=== PATIENT | female | born 1995 | race Two or more races ===

== ENCOUNTER 2019-06-03 03:03 | Inpatient (IN) | payer MEDICAID, OTHER ==
[2019-06-03] VITALS (7 sets, daily range): BP systolic 94–115; BP diastolic 49–77
[~2019-06-03] VITALS: Ht 157.5 cm; Wt 83.0 kg
[2019-06-03] MEDS ORDERED: ONDANSETRON PF 4 MG/2 ML VIAL. IV PRN (03:30)
[2019-06-03] MEDS ORDERED: OXYTOCIN 30 UNIT/500 ML PREMIX 500 ML IV PRN ×3 (03:30→09:15)
[2019-06-03] MEDS ORDERED: MAG HYDROX/ALUMINUM HYD/SIMETH 30 ML ORAL.SUSP PO PRN ×2 (03:30→09:15)
[2019-06-03] MEDS ORDERED: LIDOCAINE 1% PF 30 ML VIAL. INJ PRN (03:30)
[2019-06-03] MEDS ORDERED: 0.9 % SODIUM CHLORIDE 10 ML DISP.SYRIN. IV PRN ×2 (03:30→09:15)
[2019-06-03] MEDS ORDERED: IBUPROFEN 400 MG TABLET. PO PRN (03:30)
[2019-06-03] MEDS ORDERED: fentaNYL PF VIAL 100 MCG/2 ML VIAL IV PRN (03:30)
[2019-06-03] MEDS ORDERED: TERBUTALINE 1 MG/ML VIAL. SQ PRN (03:30)
[2019-06-03] MEDS ORDERED: BUTORPHANOL 2 MG/ML VIAL. IV PRN (03:30)
[2019-06-03] MEDS ORDERED: ACETAMINOPHEN 325 MG TABLET. PO PRN ×2 (03:30→09:15)
[2019-06-03] MEDS ORDERED: NALBUPHINE 10 MG/ML AMPUL. IV PRN (03:30)
[2019-06-03] MEDS ORDERED: PENICILLIN G K 5,000,000 UNIT in IV DEXTROSE 5% 100ML 100 ML IV ONE (04:00)
[2019-06-03] MEDS: IV RINGERS,LACTATED 1000ML 1,000 ML IV SCH ×2 (04:28→06:45)
[2019-06-03 05:10] LABS: BASO % 0 % (0-3); EOS # 0.1 x10^3/uL (0.0-0.7); EOS % 2 % (0-3); HEMATOCRIT 32.8 % (36.0-47.0); LYMPH # 1.4 x10^3/uL (1.0-4.8); LYMPH % 19 % (24-48); MEAN CORPUSCULAR HEMOGLOBIN 28 pg (25-35); MEAN CORPUSCULAR HGB CONC 34 g/dL (31-37); MEAN CORPUSCULAR VOLUME 84 fL (79-100); MONO # 0.4 x10^3/uL (0.0-1.1); MONO % 5 % (0-9); NEUT # 5.4 x10^3/uL (1.8-7.7); NEUT % 74 % (31-73); PLATELET COUNT 230 x10^3/uL (140-400); RED BLOOD COUNT 3.93 x10^6/uL (3.50-5.40); RED CELL DISTRIBUTION WIDTH 14.9 % (11.5-14.5); WHITE BLOOD COUNT 7.3 x10^3/uL (4.0-11.0)
[2019-06-03] MEDS ORDERED: IV RINGERS,LACTATED 1000ML 1,000 ML IV SCH (05:41)
[2019-06-03] MEDS ORDERED: ePHEDrine PF IN SALINE 50 MG/10 ML SYRINGE. IV PRN (05:45)
[2019-06-03] MEDS ORDERED: ROPIVacaine 0.2% IN 0.9%NACL PF 40 MG/20 ML DISP.SYRIN. EPID PRN (05:45)
[2019-06-03] MEDS ORDERED: NALOXONE 0.4 MG/ML VIAL. IV PRN (05:45)
[2019-06-03] MEDS ORDERED: L&D EPIDURAL SYRINGE 50 ML EPID PRN (05:45)
[2019-06-03] MEDS ORDERED: ROPIVacaine 0.2% PF 10 ML VIAL. ONE ×2 (05:52→06:00)
--- NOTE | 2019-06-03 06:39 | PDOC1 ---
OB - History Hx of Present Care: Good Care Ultrasounds: Normal mid trimester US Obstetrical Complications: None Medical Complications: None Past Family/Social History * Past Medical, Surgical, Family and Obstetric Histories reviewed from chart. Rubella: Immune RPR/VDRL: Negative GBS Status: Positive HBsAG: Negative OB - Chief Complaint & HPI Date of Admission: Date of Admission: Jun 03, 2019 at 03:03 Chief Complaint/History : 3 Para: 2 EGA: 40 Reason for admission: active labor Admission Nurse Assessment Rev: Yes OB - Admission Exam Physical Exam Vitals: VS - Last 72 Hours, by Label Date Time Temp Pulse Resp B/P (MAP) Pulse Ox O2 Delivery O2 Flow Rate FiO2 06/03/19 05:57 20 Room Air 06/03/19 05:16 20 Room Air 06/03/19 04:09 98.2 87 18 115/77 (90) Room Air 98.2 HEENT: Normal Heart: Regular Rate Lungs: Clear, Equal Abdomen: Gravid, Non tender, Soft Extremities: Edema Reflexes: Normal Cervical Dilatation: 5cm Effacement: 75% Station: -2 Membranes: Intact Heart Rate: Normal Accelerations: Accelerations Present Decelerations: No decelerations Excellence Leader Variability: Moderate Contractions on Admission: < 5 Minutes Apart Intensity: Moderate Text A: 40 wks IUP GBS positive Active labor P: Admit for labor management. Start Pen G prophylaxis for GBS status. JACQUELYN JACOBS Jr, MD Jun 03, 2019 06:39
[2019-06-03 07:31] LABS: BILIRUBIN,URINE NEGATIVE (NEG); CLARITY,URINE CLEAR; COLOR,URINE YELLOW; NITRITE,URINE NEGATIVE (NEG); PROTEIN,URINE NEGATIVE (NEG-TRACE)
[2019-06-03 07:43] LABS: BACTERIA,URINE MODERATE /HPF (0-FEW); RBC,URINE OCC /HPF (0-2); SQUAMOUS EPITHELIAL CELL,UR MOD /LPF
[2019-06-03] MEDS ORDERED: PENICILLIN G K 2,500,000 UNIT in IV DEXTROSE 5% 50 ML IV SCH (08:00)
--- NOTE | 2019-06-03 09:04 | PDOC ---
VAGINAL DELIVERY DATE DATE: 06/03/19 TIME: 09:03 : 3 Para: 3 EGA: 40 VAGINAL DELIVERY: VTX VACCUM ASSISTED: No PLACENTA: Spontaneous 8/9 SEX: Male WEIGHT Weight [ 2975 gm] Nuchal Cord: No Amniotic Fluid: Clear PAIN: Epidural EPISIOTOMY: No EXTENSION: No EBL 300 ml COMPLICATIONS none CONDITION pt. stable Signs of Intrauterine Infectio: None Shoulder Dystocia: No JACQUELYN JACOBS Jr, MD Jun 03, 2019 09:04
[2019-06-03] MEDS ORDERED: MAGNESIUM HYDROXIDE 2,400 MG/30 ML ORAL.SUSP. PO PRN (09:15)
[2019-06-03] MEDS ORDERED: SIMETHICONE 80 MG TAB.CHEW PO PRN (09:15)
[2019-06-03] MEDS ORDERED: BENZOCAINE 20% TOPICAL AEROSOL SPRAY 57GM CAN. TP PRN (09:15)
[2019-06-03] MEDS ORDERED: PHENYLEPH/MINERAL OIL/PETROLAT RECTAL OINTMENT TUBE. RC PRN (09:15)
[2019-06-03] MEDS ORDERED: oxyCODONE/APAP 5/325 1 TAB TABLET PO PRN (09:15)
[2019-06-03] MEDS ORDERED: HYDROCORTISONE 1% TOPICAL OINTMENT 30GM TUBE. TP PRN (09:15)
[2019-06-03] MEDS ORDERED: ZOLPIDEM 5 MG TABLET. PO PRN (09:15)
[2019-06-03] MEDS ORDERED: diphenhydrAMINE HCL 25 MG CAPSULE PO PRN (09:15)
[2019-06-03] MEDS ORDERED: MMR per PROTOCOL. MC PRN (09:15)
[2019-06-03] MEDS: IBUPROFEN 400 MG TABLET. PO PRN ×2 (10:54→23:27)
[2019-06-03] MEDS ORDERED: miSOPROStol 200 MCG TABLET ONE ×2 (11:24→12:00)
[2019-06-03] MEDS ORDERED: miSOPROStol 200 MCG TABLET PR ONE (12:00)
[2019-06-03] MEDS: DOCUSATE SODIUM 100 MG CAPSULE. PO PRN (23:27)
[2019-06-04 02:08] VITALS: BP 96/57
[2019-06-04 05:50] LABS: BASO % 0 % (0-3); EOS # 0.1 x10^3/uL (0.0-0.7); EOS % 2 % (0-3); HEMATOCRIT 29.2 % (36.0-47.0); HEMOGLOBIN 9.7 g/dL (12.0-15.5); LYMPH # 1.9 x10^3/uL (1.0-4.8); LYMPH % 27 % (24-48); MEAN CORPUSCULAR HEMOGLOBIN 28 pg (25-35); MEAN CORPUSCULAR HGB CONC 33 g/dL (31-37); MEAN CORPUSCULAR VOLUME 84 fL (79-100); MONO # 0.2 x10^3/uL (0.0-1.1); MONO % 3 % (0-9); NEUT # 4.7 x10^3/uL (1.8-7.7); NEUT % 67 % (31-73); PLATELET COUNT 170 x10^3/uL (140-400); RED BLOOD COUNT 3.47 x10^6/uL (3.50-5.40); RED CELL DISTRIBUTION WIDTH 14.9 % (11.5-14.5); WHITE BLOOD COUNT 7.1 x10^3/uL (4.0-11.0)
[2019-06-04 06:10] VITALS: BP 101/60
--- NOTE | 2019-06-04 07:53 | PDOC ---
OB Progress Note Date of Service 06/04/19 Time of Evaluation 0750 Notes Pt. feeling well. No complaints. Lab Laboratory Tests Test 06/03/19 04:00 06/03/19 05:30 06/04/19 05:34 White Blood Count 7.3 x10^3/uL (4.0-11.0) 7.1 x10^3/uL (4.0-11.0) Red Blood Count 3.93 x10^6/uL (3.50-5.40) 3.47 x10^6/uL (3.50-5.40) Hemoglobin 11.0 g/dL (12.0-15.5) 9.7 g/dL (12.0-15.5) Hematocrit 32.8 % (36.0-47.0) 29.2 % (36.0-47.0) Mean Corpuscular Volume 84 fL (79-100) 84 fL (79-100) Mean Corpuscular Hemoglobin 28 pg (25-35) 28 pg (25-35) Mean Corpuscular Hemoglobin Concent 34 g/dL (31-37) 33 g/dL (31-37) Red Cell Distribution Width 14.9 % (11.5-14.5) 14.9 % (11.5-14.5) Platelet Count 230 x10^3/uL (140-400) 170 x10^3/uL (140-400) Neutrophils (%) (Auto) 74 % (31-73) 67 % (31-73) Lymphocytes (%) (Auto) 19 % (24-48) 27 % (24-48) Monocytes (%) (Auto) 5 % (0-9) 3 % (0-9) Eosinophils (%) (Auto) 2 % (0-3) 2 % (0-3) Basophils (%) (Auto) 0 % (0-3) 0 % (0-3) Neutrophils # (Auto) 5.4 x10^3/uL (1.8-7.7) 4.7 x10^3/uL (1.8-7.7) Lymphocytes # (Auto) 1.4 x10^3/uL (1.0-4.8) 1.9 x10^3/uL (1.0-4.8) Monocytes # (Auto) 0.4 x10^3/uL (0.0-1.1) 0.2 x10^3/uL (0.0-1.1) Eosinophils # (Auto) 0.1 x10^3/uL (0.0-0.7) 0.1 x10^3/uL (0.0-0.7) Basophils # (Auto) 0.0 x10^3/uL (0.0-0.2) 0.0 x10^3/uL (0.0-0.2) Treponema pallidum Antibody Nonreactive (Nonreactive) Urine Collection Type Void Urine Color Yellow Urine Clarity Clear Urine pH 7.0 Urine Specific [place] 1.020 Urine Protein Negative mg/dL (NEG-TRACE) Urine Glucose (UA) Negative mg/dL (NEG) Urine Ketones (Stick) Trace mg/dL (NEG) Urine Blood Large (NEG) Urine Nitrite Negative (NEG) Urine Bilirubin Negative (NEG) Urine Urobilinogen Dipstick 1.0 mg/dL (0.2 mg/dL) Urine Leukocyte Esterase Small (NEG) Urine RBC Occ /HPF (0-2) Urine WBC 11-20 /HPF (0-4) Urine Squamous Epithelial Cells Mod /LPF Urine Bacteria Moderate /HPF (0-FEW) Urine Mucus Slight /LPF Laboratory Tests Test 06/04/19 05:34 White Blood Count 7.1 x10^3/uL (4.0-11.0) Red Blood Count 3.47 x10^6/uL (3.50-5.40) Hemoglobin 9.7 g/dL (12.0-15.5) Hematocrit 29.2 % (36.0-47.0) Mean Corpuscular Volume 84 fL (79-100) Mean Corpuscular Hemoglobin 28 pg (25-35) Mean Corpuscular Hemoglobin Concent 33 g/dL (31-37) Red Cell Distribution Width 14.9 % (11.5-14.5) Platelet Count 170 x10^3/uL (140-400) Neutrophils (%) (Auto) 67 % (31-73) Lymphocytes (%) (Auto) 27 % (24-48) Monocytes (%) (Auto) 3 % (0-9) Eosinophils (%) (Auto) 2 % (0-3) Basophils (%) (Auto) 0 % (0-3) Neutrophils # (Auto) 4.7 x10^3/uL (1.8-7.7) Lymphocytes # (Auto) 1.9 x10^3/uL (1.0-4.8) Monocytes # (Auto) 0.2 x10^3/uL (0.0-1.1) Eosinophils # (Auto) 0.1 x10^3/uL (0.0-0.7) Basophils # (Auto) 0.0 x10^3/uL (0.0-0.2) Medications Current Medications Sodium Chloride (Normal Saline Flush) 3 ml QSHIFT PRN IV AFTER MEDS AND BLOOD DRAWS; Start 06/03/19 at 03:30 Ringer's Solution 1,000 ml @ 125 mls/hr Q8H IV Last administered on 06/03/19at 06:45; Start 06/03/19 at 03:17 Nalbuphine HCl (Nubain) 10 mg PRN Q1HR PRN IV Severe labor pain; Start 06/03/19 at 03:30 Butorphanol Tartrate (Stadol) 2 mg PRN Q1HR PRN IV Severe labor pain; Start 06/03/19 at 03:30 Fentanyl Citrate (Fentanyl 2ml Vial) 100 mcg PRN Q20MIN PRN IV Labor pain Last administered on 06/03/19at 05:16; Start 06/03/19 at 03:30 Acetaminophen (Tylenol) 650 mg PRN Q6HRS PRN PO MILD PAIN / TEMP; Start 06/03/19 at 03:30; Stop 06/03/19 at 10:11; Status DC Ondansetron HCl (Zofran) 4 mg PRN Q4HRS PRN IV NAUSEA/VOMITING 1ST CHOICE; Start 06/03/19 at 03:30 Al Hydroxide/Mg Hydroxide (Mylanta Plus Xs) 30 ml PRN Q4HRS PRN PO HEARTBURN / GAS; Start 06/03/19 at 03:30; Stop 06/03/19 at 10:11; Status DC Terbutaline Sulfate (Brethine) 0.25 mg 1X PRN PRN SQ SEE COMMENTS; Start 06/03/19 at 03:30; Stop 06/04/19 at 03:29; Status DC Lidocaine HCl (Xylocaine 1% Pf 30ml Vial) 30 ml 1X PRN PRN INJ SEE COMMENTS; Start 06/03/19 at 03:30; Stop 06/05/19 at 03:29 Oxytocin/Sodium Chloride 500 ml @ 0 mls/hr CONT PRN IV SEE I/O RECORD Last administered on 06/03/19at 06:46; Start 06/03/19 at 03:30 Oxytocin/Sodium Chloride 500 ml @ 0 mls/hr CONT PRN PRN IV Post delivery bleeding; Start 06/03/19 at 03:30 Ibuprofen (Motrin) 800 mg PRN Q6HRS PRN PO MODERATE PAIN 4-6; Start 06/03/19 at 03:30; Stop 06/03/19 at 10:11; Status DC Penicillin G Potassium [id number] unit/Dextrose 100 ml @ 100 mls/hr 1X ONCE IV Last administered on 06/03/19at 04:29; Start 06/03/19 at 04:00; Stop 06/03/19 at 04:59; Status DC Penicillin G Potassium [id number] unit/Dextrose 50 ml @ 100 mls/hr Q4H IV Last administered on 06/03/19at 07:35; Start 06/03/19 at 08:00 Ringer's Solution 1,000 ml @ 1,000 mls/hr Q1H IV ; Start 06/03/19 at 05:41; Stop 06/03/19 at 06:40; Status DC Ephedrine Sulfate (ePHEDrine PF IN SALINE SYRINGE) 10 mg PRN Q2MIN PRN IV IF SBP<90; Start 06/03/19 at 05:45 Naloxone HCl (Narcan) 0.4 mg PRN Q1MIN PRN IV SEE COMMENTS; Start 06/03/19 at 05:45 Fentanyl Citrate 50 ml @ 14 mls/hr CONT PRN EPID PAIN Last administered on 06/03/19at 05:57; Start 06/03/19 at 05:45 Ropivacaine/ Sodium Chloride (ROPIVacaine 0.2% - 0.9%NACL PF) 40 mg PRN 1X PRN EPID SEE COMMENTS; Start 06/03/19 at 05:45 Ropivacaine (Naropin 0.2%) 10 ml STK-MED ONCE .ROUTE ; Start 06/03/19 at 05:52; Stop 06/03/19 at 05:52; Status DC Ropivacaine (Naropin 0.2%) 10 ml STK-MED ONCE .ROUTE ; Start 06/03/19 at 06:00; Stop 06/03/19 at 08:22; Status DC Sodium Chloride (Normal Saline Flush) 10 ml QSHIFT PRN IV AFTER MEDS AND BLOOD DRAWS; Start 06/03/19 at 09:15 Oxytocin/Sodium Chloride 500 ml @ 62.5 mls/hr CONT PRN IV SEE I/O RECORD; Start 06/03/19 at 09:15; Stop 06/03/19 at 17:14; Status DC Acetaminophen (Tylenol) 650 mg PRN Q6HRS PRN PO MILD PAIN / TEMP; Start 06/03/19 at 09:15 Ibuprofen (Motrin) 800 mg PRN Q8HRS PRN PO INFLAMMATION/PAIN PREVENTION Last administered on 06/03/19at 23:27; Start 06/03/19 at 09:15 Docusate Sodium (Colace) 100 mg PRN BID PRN PO CONSTIPATION Last administered on 06/03/19at 23:27; Start 06/03/19 at 09:15 Magnesium Hydroxide (Milk Of Magnesia) 2,400 mg PRN DAILY PRN PO CONSTIPATION; Start 06/03/19 at 09:15 Al Hydroxide/Mg Hydroxide (Mylanta Plus Xs) 30 ml PRN Q4HRS PRN PO HEARTBURN / GAS; Start 06/03/19 at 09:15 Simethicone (Gas-X) 80 mg PRN AFTMEALHC PRN PO GAS / BLOATING; Start 06/03/19 at 09:15 Diphenhydramine HCl (Benadryl) 25 mg PRN Q6HRS PRN PO ITCHING; Start 06/03/19 at 09:15 Benzocaine (Americaine) 1 spray PRN QID PRN TP TOPICAL PAIN; Start 06/03/19 at 09:15 Phenyleph/Shark Oil/Min Oil/Petrol (Preparation H) 1 fabian PRN QID PRN RC RECTAL PAIN; Start 06/03/19 at 09:15 Hydrocortisone (Cortaid) 1 fabian PRN QID PRN TP PERINEAL PAIN; Start 06/03/19 at 09:15 Ferrous Sulfate (Feosol) 325 mg BIDWMEALS PO ; Start 06/04/19 at 08:00 Zolpidem Tartrate (Ambien) 5 mg PRN QHS PRN PO INSOMNIA, MAY REPEAT X1; Start 06/03/19 at 09:15 Info (Do NOT chart on this placeholder) 1 ea 1X PRN PRN MC SEE COMMENTS; Start 06/03/19 at 09:15 Info (Do NOT chart on this placeholder) 1 ea 1X PRN PRN MC SEE COMMENTS; Start 06/03/19 at 09:15; Stop 06/03/19 at 13:16; Status DC Oxycodone/ Acetaminophen (Percocet 5/325) 2 tab PRN Q4HRS PRN PO MODERATE PAIN, SEVERE PAIN; Start 06/03/19 at 09:15 Misoprostol (Cytotec 200mcg Tab) 200 mcg STK-MED ONCE .ROUTE ; Start 06/03/19 at 11:24; Stop 06/03/19 at 11:24; Status DC Misoprostol (Cytotec 200mcg Tab) 800 mcg 1X ONCE MS ; Start 06/03/19 at 12:00; Stop 06/03/19 at 12:01; Status DC Exam Abd: soft, non tender, fundus firm Assessment PPD#1 s/p Plan of Care: Continue current Tx, Mgmt JACQUELYN JACOBS Jr, MD Jun 04, 2019 07:53
[2019-06-04] MEDS: DOCUSATE SODIUM 100 MG CAPSULE. PO PRN (08:58)
[2019-06-04] MEDS: IBUPROFEN 400 MG TABLET. PO PRN ×2 (08:58→17:34)
[2019-06-04] MEDS: FERROUS SULFATE 325 MG TABLET. PO SCH ×2 (08:58→17:34)
[2019-06-04 11:15] VITALS: BP 100/57
[2019-06-04 16:12] VITALS: BP 97/61
[2019-06-04 20:25] VITALS: BP 101/58
[2019-06-05 06:19] VITALS: BP 100/59
[2019-06-05] MEDS: FERROUS SULFATE 325 MG TABLET. PO SCH (10:27)
[2019-06-05] MEDS: IBUPROFEN 400 MG TABLET. PO PRN (10:27)
[2019-06-05] MEDS: DOCUSATE SODIUM 100 MG CAPSULE. PO PRN (10:27)
[2019-06-05 11:00] VITALS: BP 103/62
--- NOTE | 2019-06-05 14:17 | PDOC3 ---
OB DISCHARGE SUMMARY DATE OF ADMISSION: 06/03/19 DATE OF DISCHARGE: 06/05/19 REASON FOR ADMISSION: Onset of labor PROCEDURES: None INTRAPARTUM PROCEDURES: Spontanous Vag Deliv PROCEDURES: None OPERATIONS: None DISCHARGE DIAGNOSIS: Term Delivered DISCHARGE INFORMATION: Activity, Diet HOSPITAL COURSE Unremarkable CONDITION AT DISCHARGE Stable CORKY FRANCES MD Jun 05, 2019 14:17
[2019-06-05 14:57] VITALS: BP 105/54
--- NOTE | 2019-06-05 15:36 | NUR ---
Discharge Discharge instructions given to patient at this time per patient insurance clerk phone #[phone], no questions or concerns noted. To [place] with [facility] [place]. Patient left with all belongings.
== END 2019-06-05 16:05 | disposition home or self-care (01) | DRG 807 ==
LOC: 3 SO LND 03:03 → OBSVTOIN 03:20 → 3 NORTH 12:00
PROVIDERS: ADMIT Obstetrics & Gynecology; ATTEND Obstetrics & Gynecology
PROC: 10E0XZZ Delivery of Products of Conception, External Approach (ICD-10-PCS; principal; 2019-06-03)
PROC: 3E0R3BZ Introduction of Anesthetic Agent into Spinal Canal, Percutaneous Approach (ICD-10-PCS; 2019-06-03)
PROC: 00HU33Z Insertion of Infusion Device into Spinal Canal, Percutaneous Approach (ICD-10-PCS; 2019-06-03)
DX: O99.824 Streptococcus B carrier state complicating childbirth (principal); Z37.0 Single live birth; Z3A.40 40 weeks gestation of pregnancy
CPT/HCPCS: 36415; 81001; 85025; 86592; 86850; 86900; 86901; 87086; G0379; J2540; J2590; J2795; J3010; J7120; G0378